=== PATIENT | male | born 1950 | race Caucasian/White ===

== ENCOUNTER 2016-04-17 20:34 | Inpatient (IN) | payer OTHER ==
[~2016-04-17] VITALS: Ht 185.4 cm; Wt 189.0 kg
[~2016-04-17 20:34] MED LIST: ACCUPRIL40 MG PO; ASPIRIN EC325 MG PO; B-COMPLEX-VITA1 EACH PO; CALTRATE 600 +1 EAC1 PO; CELECOXIB200 MG PO; CENTRUM SILVER1 EAC3 PO; HYDROCODON-ACE1 EAC7 PO; IRON325 M1 PO; LEXAPRO20 MG PO; LO-DOSE ASPIRIN81 M1 PO; PRAVACHOL20 MG PO; PRILOSEC20 MG PO; SENNA PLUS TAB1 EACH PO; VERAPAMIL HCL240 MG PO
[2016-04-17 20:57] LABS: EOSINOPHIL (%) 1.1 % (0-5); EOSINOPHIL COUNT 0.2 K/uL (0-0.3); HEMATOCRIT 34.3 % (38.0-50.0); IMMATURE GRANULOCYTE (%) 0.2 % (0.0-0.7); IMMATURE GRANULOCYTE COUNT 0.3 K/uL; LYMPHOCYTE COUNT 1.1 K/uL (1.0-2.8); MCH 31.5 PG (29.0-34.0); MCHC 31.8 G/DL (30.0-36.0); MCV 99.1 FL (86-99); MEAN PLAT.VOLUME 8.7 uM^3 (9.0-12.4); NEUTROPHIL COUNT 12.4 K/uL (1.8-6.4); PLATELET COUNT 366 K/uL (156-360); RBC DIS.WIDTH-CV 14.7 % (11.8-14.6); RBC DIS.WIDTH-SD 49.9 % (39-53); RED BLOOD COUNT 3.46 M/uL (4.00-5.50); WHITE BLOOD COUNT 14.7 K/uL (4.1-10.2)
[2016-04-17 21:05] LABS: CHLORIDE 104 mEq/L (99-109); POTASSIUM 4.4 mEq/L (3.7-5.4); SODIUM 141 mEq/L (136-147)
[2016-04-17 21:06] LABS: GLUCOSE 129 mg/dL (70-99)
[2016-04-17 21:08] LABS: ANION GAP 12 MEQ/L (2-14)
[2016-04-17 21:10] LABS: GFR ESTIMATE (CALCULATED) > 59 mL/min/
[2016-04-17 21:11] LABS: UREA NITROGEN (BUN) 23 mg/dL (9-23)
[2016-04-17 22:27] LABS: INTER. NORMALIZED RATIO 1.1; PROTHROMBIN TIME 11.2 (9.2-11.2)
[2016-04-17] MEDS ORDERED: ASPIRIN325 MG PO (22:44)
[2016-04-17] MEDS ORDERED: CELEBREX200 MG PO (22:45)
[2016-04-18] VITALS (12 sets, daily range): BP systolic 73–178; BP diastolic 33–86
[2016-04-18 04:24] LABS: METH RESISTANT S AUREUS PCR NEGATIVE (NEGATIVE)
[2016-04-18 04:30] LABS: PROBE CHECK PASS; SPECIMEN PROCESSING CONTROL PASS
[2016-04-18 06:16] LABS: HEMATOCRIT 29.9 % (38.0-50.0); MCH 31.3 PG (29.0-34.0); MCHC 31.4 G/DL (30.0-36.0); MCV 99.7 FL (86-99); MEAN PLAT.VOLUME 9.1 uM^3 (9.0-12.4); PLATELET COUNT 337 K/uL (156-360); RBC DIS.WIDTH-CV 14.9 % (11.8-14.6); RBC DIS.WIDTH-SD 54.9 % (39-53); WHITE BLOOD COUNT 15.1 K/uL (4.1-10.2)
[2016-04-18 06:45] LABS: ANION GAP 8 MEQ/L (2-14); CHLORIDE 103 MEQ/L (99-109); GFR ESTIMATE (CALCULATED) > 59 mL/min/; GLUCOSE 122 mg/dL (70-99); MAGNESIUM 2.1 mg/dl (1.3-2.7); POTASSIUM 4.6 MEQ/L (3.7-5.4); SAMPLE HEMOLYSIS CHECK 0; SAMPLE ICTERIC CHECK 0; SAMPLE LIPEMIA CHECK 0; SODIUM 140 MEQ/L (136-147); UREA NITROGEN (BUN) 26 mg/dL (9-23)
[2016-04-19] VITALS (19 sets, daily range): BP systolic 72–133; BP diastolic 36–57
[2016-04-19 06:31] LABS: HEMATOCRIT 24.8 % (38.0-50.0); MCH 31.5 PG (29.0-34.0); MCHC 31.5 G/DL (30.0-36.0); PLATELET COUNT 277 K/uL (156-360); RBC DIS.WIDTH-CV 14.9 % (11.8-14.6); RBC DIS.WIDTH-SD 55.2 % (39-53); RED BLOOD COUNT 2.48 M/uL (4.00-5.50); WHITE BLOOD COUNT 11.2 K/uL (4.1-10.2)
[2016-04-19 07:02] LABS: ANION GAP 8 MEQ/L (2-14); CHLORIDE 104 MEQ/L (99-109); GFR ESTIMATE (CALCULATED) 32 mL/min/; GLUCOSE 122 mg/dL (70-99); MAGNESIUM 2.1 mg/dl (1.3-2.7); POTASSIUM 4.7 MEQ/L (3.7-5.4); SAMPLE HEMOLYSIS CHECK 0; SAMPLE ICTERIC CHECK 0; SAMPLE LIPEMIA CHECK 0; SODIUM 137 MEQ/L (136-147); UREA NITROGEN (BUN) 38 mg/dL (9-23)
[2016-04-20] VITALS (8 sets, daily range): BP systolic 91–145; BP diastolic 51–70
[2016-04-20 06:15] LABS: HEMATOCRIT 23.9 % (38.0-50.0); MCH 31.3 PG (29.0-34.0); MCHC 32.6 G/DL (30.0-36.0); PLATELET COUNT 219 K/uL (156-360); RBC DIS.WIDTH-CV 14.9 % (11.8-14.6); RBC DIS.WIDTH-SD 52.2 % (39-53); RED BLOOD COUNT 2.49 M/uL (4.00-5.50)
[2016-04-20 06:16] LABS: WHITE BLOOD COUNT 7.4 K/uL (4.1-10.2)
[2016-04-20 06:49] LABS: ANION GAP 6 MEQ/L (2-14); CHLORIDE 106 MEQ/L (99-109); GLUCOSE 101 mg/dL (70-99); POTASSIUM 4.2 MEQ/L (3.7-5.4); SAMPLE HEMOLYSIS CHECK 0; SAMPLE ICTERIC CHECK 0; SAMPLE LIPEMIA CHECK 0; SODIUM 136 MEQ/L (136-147); UREA NITROGEN (BUN) 28 mg/dL (9-23)
[2016-04-20 07:04] LABS: GFR ESTIMATE (CALCULATED) > 59 mL/min/; VANCOMYCIN, TROUGH 15.1 MCG/ML (10-20)
[2016-04-20 14:45] LABS: MEAN PLAT.VOLUME 9.2 uM^3 (9.0-12.4); PLATELET COUNT 231 K/uL (156-360)
[2016-04-20 15:17] LABS: ABS NEUTROPHIL COUNT 5.01; ANISOCYTOSIS 1+; EOSINOPHIL ABS CT 0.36; HELMET CELLS RARE; HEMATOCRIT 25.6 % (38.0-50.0); MCH 31.5 PG (29.0-34.0); MCHC 32.8 G/DL (30.0-36.0); MCV 95.9 FL (86-99); POLYCHROMASIA OCC; RBC DIS.WIDTH-CV 15.1 % (11.8-14.6); RBC DIS.WIDTH-SD 52.9 % (39-53); RED BLOOD COUNT 2.67 M/uL (4.00-5.50); SCHISTOCYTES RARE; USER ID NJV; WHITE BLOOD COUNT 7.2 K/uL (4.1-10.2)
[2016-04-20 15:18] LABS: DELETE MACHINE DIFF? YES
[2016-04-21] VITALS (7 sets, daily range): BP systolic 132–150; BP diastolic 65–78
[2016-04-21 06:29] LABS: HEMATOCRIT 25.6 % (38.0-50.0); MCH 31.3 PG (29.0-34.0); MCHC 32.4 G/DL (30.0-36.0); MCV 96.6 FL (86-99); MEAN PLAT.VOLUME 8.8 uM^3 (9.0-12.4); PLATELET COUNT 236 K/uL (156-360); RBC DIS.WIDTH-CV 15.2 % (11.8-14.6); RBC DIS.WIDTH-SD 53.9 % (39-53); RED BLOOD COUNT 2.65 M/uL (4.00-5.50); WHITE BLOOD COUNT 6.1 K/uL (4.1-10.2)
[2016-04-21 06:53] LABS: ANION GAP 6 MEQ/L (2-14); CHLORIDE 103 MEQ/L (99-109); GFR ESTIMATE (CALCULATED) > 59 mL/min/; GLUCOSE 104 mg/dL (70-99); MAGNESIUM 1.9 mg/dl (1.3-2.7); POTASSIUM 4.3 MEQ/L (3.7-5.4); SAMPLE HEMOLYSIS CHECK 0; SAMPLE ICTERIC CHECK 0; SAMPLE LIPEMIA CHECK 0; SODIUM 137 MEQ/L (136-147); UREA NITROGEN (BUN) 21 mg/dL (9-23)
[2016-04-22 03:57] VITALS: BP 159/85
[2016-04-22 06:01] LABS: HEMATOCRIT 25.8 % (38.0-50.0); MCH 31.7 PG (29.0-34.0); MCHC 32.9 G/DL (30.0-36.0); MCV 96.3 FL (86-99); MEAN PLAT.VOLUME 9.1 uM^3 (9.0-12.4); PLATELET COUNT 267 K/uL (156-360); RBC DIS.WIDTH-CV 14.9 % (11.8-14.6); RBC DIS.WIDTH-SD 51.9 % (39-53); RED BLOOD COUNT 2.68 M/uL (4.00-5.50)
[2016-04-22 06:20] LABS: ANION GAP 7 MEQ/L (2-14); CHLORIDE 104 MEQ/L (99-109); GFR ESTIMATE (CALCULATED) > 59 mL/min/; GLUCOSE 100 mg/dL (70-99); MAGNESIUM 1.8 mg/dl (1.3-2.7); SAMPLE HEMOLYSIS CHECK 0; SAMPLE ICTERIC CHECK 0; SAMPLE LIPEMIA CHECK 0; SODIUM 139 MEQ/L (136-147); UREA NITROGEN (BUN) 17 mg/dL (9-23)
[2016-04-22 07:37] VITALS: BP 168/79
[2016-04-22 16:51] VITALS: BP 141/70
[2016-04-22 20:00] VITALS: BP 147/72
[2016-04-22 23:30] VITALS: BP 128/64
[2016-04-23 03:47] VITALS: BP 136/70
[2016-04-23 06:45] LABS: HEMATOCRIT 26.9 % (38.0-50.0); MCH 31.4 PG (29.0-34.0); MCHC 32.3 G/DL (30.0-36.0); MCV 97.1 FL (86-99); MEAN PLAT.VOLUME 8.9 uM^3 (9.0-12.4); PLATELET COUNT 269 K/uL (156-360); RBC DIS.WIDTH-CV 15.1 % (11.8-14.6); RBC DIS.WIDTH-SD 53.2 % (39-53); RED BLOOD COUNT 2.77 M/uL (4.00-5.50); WHITE BLOOD COUNT 6.5 K/uL (4.1-10.2)
[2016-04-23 07:07] LABS: ANION GAP 11 MEQ/L (2-14); CHLORIDE 103 MEQ/L (99-109); GFR ESTIMATE (CALCULATED) > 59 mL/min/; GLUCOSE 100 mg/dL (70-99); MAGNESIUM 1.8 mg/dl (1.3-2.7); SAMPLE HEMOLYSIS CHECK 0; SAMPLE ICTERIC CHECK 0; SAMPLE LIPEMIA CHECK 0; SODIUM 140 MEQ/L (136-147); UREA NITROGEN (BUN) 18 mg/dL (9-23)
[2016-04-23 08:13] VITALS: BP 137/75
[2016-04-23 12:22] VITALS: BP 123/58
[2016-04-23] MEDS ORDERED: ENDOCET 5-3251 EACH PO (14:11)
[2016-04-23] MEDS ORDERED: METHOCARBAMOL750 MG PO (14:11)
[2016-04-23 16:19] VITALS: BP 117/60
[2016-04-23 19:47] VITALS: BP 188/86
[2016-04-24 04:02] VITALS: BP 158/72
[2016-04-24 04:10] VITALS: BP 165/88
[2016-04-24 05:33] LABS: HEMATOCRIT 25.6 % (38.0-50.0); MCH 31.7 PG (29.0-34.0); MCHC 32.4 G/DL (30.0-36.0); MCV 97.7 FL (86-99); PLATELET COUNT 274 K/uL (156-360); RBC DIS.WIDTH-CV 15.1 % (11.8-14.6); RBC DIS.WIDTH-SD 53.8 % (39-53); RED BLOOD COUNT 2.62 M/uL (4.00-5.50); WHITE BLOOD COUNT 6.2 K/uL (4.1-10.2)
[2016-04-24 08:02] VITALS: BP 160/78
[2016-04-24 12:03] VITALS: BP 164/78
[2016-04-24 12:40] LABS: ANION GAP 9 MEQ/L (2-14); CHLORIDE 104 MEQ/L (99-109); GFR ESTIMATE (CALCULATED) > 59 mL/min/; GLUCOSE 94 mg/dL (70-99); MAGNESIUM 1.9 mg/dl (1.3-2.7); POTASSIUM 4.3 MEQ/L (3.7-5.4); SAMPLE HEMOLYSIS CHECK 0; SAMPLE ICTERIC CHECK 0; SAMPLE LIPEMIA CHECK 0; SODIUM 137 MEQ/L (136-147); UREA NITROGEN (BUN) 17 mg/dL (9-23)
[2016-04-24 16:09] VITALS: BP 160/72
== END 2016-04-24 16:52 | DRG 907 ==
LOC: EME → EDBD 20:34 → EDOF 22:18 → 4WEST 04-18 01:30 → EDOF 04-18 01:30 → 3EAST 04-18 01:30 → 4WEST 04-18 02:50 → 3EAST 04-21 15:57
PROVIDERS: Emergency Medicine; Hospitalist; Physician Assistant
PROC: 0YBF0ZZ Excision of Right Knee Region, Open Approach (ICD-10-PCS; principal; 2016-04-18)
PROC: 30233N1 Transfusion of Nonautologous Red Blood Cells into Peripheral Vein, Percutaneous Approach (ICD-10-PCS; 2016-04-18)
DX: T81.32XA Disruption of internal operation (surgical) wound, not elsewhere classified, initial encounter (principal); J96.01 Acute respiratory failure with hypoxia; A41.9 Sepsis, unspecified organism; N17.9 Acute kidney failure, unspecified; I95.9 Hypotension, unspecified; D62 Acute posthemorrhagic anemia; L03.115 Cellulitis of right lower limb; E66.01 Morbid (severe) obesity due to excess calories; Z68.43 Body mass index [BMI] 50.0-59.9, adult; W01.198A Fall on same level from slipping, tripping and stumbling with subsequent striking against other object, initial encounter; I10 Essential (primary) hypertension; E78.5 Hyperlipidemia, unspecified; F33.9 Major depressive disorder, recurrent, unspecified; G47.33 Obstructive sleep apnea (adult) (pediatric); F17.200 Nicotine dependence, unspecified, uncomplicated; T88.59XA Other complications of anesthesia, initial encounter; Z96.651 Presence of right artificial knee joint; K21.9 Gastro-esophageal reflux disease without esophagitis; Z98.84 Bariatric surgery status
CPT/HCPCS: 71010; 73560; 76937; 80048; 80048 91; 80202; 82272; 83735; 84100; 85025; 85027; 85610; 85730; 86850; 86900; 86901; 86920; 87040; 87641; 93005; 94002; 94799; 97530 GO; 97530 GP; 99281; 99285; C1894; G0378; J0330; J0690; J0692; J0696; J1170; J1650; J2175; J2250; J3010; J3370; J7030; J7040; J7050; P9016

== ENCOUNTER → 2016-05-05 | Outpatient (CLI) | payer OTHER ==
[~2016-05-05] MED LIST changes: +ASPIRIN325 MG PO; +CELEBREX200 MG PO; +ENDOCET 5-3251 EACH PO; +METHOCARBAMOL750 MG PO
== END | disposition home or self-care (01) ==
LOC: PICC 14:00
DX: T81.4XXD Infection following a procedure, subsequent encounter (principal); Z47.1 Aftercare following joint replacement surgery; E78.5 Hyperlipidemia, unspecified
CPT/HCPCS: 76937; C1894